=== PATIENT | female | born 1945 | race Asian ===

== ENCOUNTER 2017-02-10 15:00 | Outpatient (RCR) | payer OTHER | END 2017-02-13 | disposition home or self-care (01) | LOC: PTY 15:00 | DX: M54.12 Radiculopathy, cervical region (principal) ==

== ENCOUNTER 2017-02-25 15:15 | Outpatient (RCR) | payer OTHER | END 2017-03-15 | disposition home or self-care (01) | LOC: PTY 15:15 | DX: M54.12 Radiculopathy, cervical region (principal) ==